=== PATIENT | male | born 1945 | race Caucasian/White ===

== ENCOUNTER 2023-03-31 17:54 | Emergency (ER) | payer OTHER, MEDICAID ==
[~2023-03-31] VITALS: Ht 175.3 cm; Wt 82.0 kg
[2023-03-31 17:56] VITALS: BP 113/57; RESP 20; O2SAT 96
[2023-03-31 18:14] VITALS: PULSE 69
== END 2023-03-31 23:14 | disposition left against medical advice (07) ==
LOC: EDBD 17:54 → ER 17:54
DX: R51.9 Headache, unspecified (principal); R94.31 Abnormal electrocardiogram [ECG] [EKG]; Z53.21 Procedure and treatment not carried out due to patient leaving prior to being seen by health care provider
CPT/HCPCS: 70450; 72125; 93005